=== PATIENT | male | born 2005 | race Caucasian/White ===

== ENCOUNTER 2025-02-15 21:47 | Emergency (ER) | payer OTHER, MEDICAID ==
[~2025-02-15] VITALS: Ht 175.3 cm; Wt 120.0 kg
[2025-02-15 22:03] VITALS: TEMP 98.6
[2025-02-15] MEDS ORDERED: NAPR-1196 PO (23:18)
[2025-02-15] MEDS ORDERED: METH-812 PO (23:18)
[2025-02-15] MEDS: KETOROLAC TROMETHAMINE 60 MG/2 ML VIAL IM ONE (23:41)
[2025-02-15 23:55] VITALS: BP 128/57; PULSE 70; RESP 16; O2SAT 99
== END 2025-02-15 23:50 | disposition home or self-care (01) ==
LOC: EMS 21:47
DX: M54.6 Pain in thoracic spine (principal); V89.2XXA Person injured in unspecified motor-vehicle accident, traffic, initial encounter; Y93.89 Activity, other specified; Y92.410 Unspecified street and highway as the place of occurrence of the external cause; Y99.8 Other external cause status
CPT/HCPCS: 99285; 72125; 72128; 72131; 96372; J1885